=== PATIENT | female | born 1950 | race Caucasian/White ===

== ENCOUNTER 2018-02-12 02:42 | Inpatient (IN) | payer BC, MEDICARE ==
[2018-02-12] MEDS: Sodium Chloride 0.9% 1,000 ML IV SCH ×2 (03:07→10:21)
--- NOTE | 2018-02-12 03:10 | EDM.PDOC ---
ED HPI GENERAL MEDICAL PROBLEM - General Chief Complaint: Gastrointestinal Problem Stated Complaint: [facility] Time Seen by Provider: 02/12/18 02:44 Source of Information: Reports: Patient History Limitations: Reports: Other (Patient forgetful of some events) - History of Present Illness INITIAL COMMENTS - FREE TEXT/NARRATIVE: The patient states that she developed generalized abdominal pain, nausea, and emesis around 16:00 yesterday afternoon, 02/11/2018. She has not had any constipation or diarrhea. She has overactive bladder, but no new urinary symptoms. A recent fever. She is unable to describe the character of the abdominal pain, but states that it is constant. She states that she has had similar symptoms the past, but not for a long time. She denies easily eating any spoiled food. No recent antibiotics. No close contacts similarly ill. No recent travel. The patient is a resident of [facility]. EMS gave the patient 4 mg of Zofran ODT, which the patient states has improved her symptoms. The patient's PCP is Rohini Tompkins. abdominal Pain Score (Numeric/FACES): 5 - Related Data Allergies Allergy/AdvReac Type Severity Reaction Status Date / Time No Known Allergies Allergy Verified 02/12/18 02:59 Home Meds: Home Meds Alendronate [Fosamax] 70 mg PO WEEKLY 10/28/13 [History] Calcium 1 tab PO DAILY 10/28/13 [History] Chlortabs 4 mg PO BEDTIME 10/28/13 [History] ClonazePAM [KlonoPIN] 1 mg PO DAILY PRN 10/28/13 [History] Iron 1 tab PO DAILY 10/28/13 [History] Lisinopril 2.5 mg PO BEDTIME 10/28/13 [History] Metoprolol Succinate [Toprol XL] 25 mg PO DAILY 10/28/13 [History] Multivitamin [Multivitamins] 1 cap PO BID 10/28/13 [History] Pramipexole [Mirapex] 1 mg PO BEDTIME 10/28/13 [History] Sertraline [Zoloft] 100 mg PO DAILY 10/28/13 [History] carBAMazepine [Tegretol] 200 mg PO BID 10/28/13 [History] Aspirin 162 mg PO DAILY 12/05/14 [History] Cholecalciferol (Vitamin D3) [Vitamin D3] 1,000 unit PO DAILY 06/23/15 [History] Cranberry Extract [Cranberry] 2,000 mg PO DAILY 06/23/15 [History] Vitamin E 400 unit PO DAILY 06/23/15 [History] Levofloxacin [Levaquin] 1 tab PO Q24H #7 tablet 12/19/15 [Rx] Past Medical History HEENT History: Reports: Impaired Vision Other HEENT History: Wears glasses Genitourinary History: Reports: Renal Calculus, Other (See Below) (Overactive bladder) Neurological History: Reports: 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), Seizure Psychiatric History: Reports: Anxiety, Depression 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), Uterine - Past Surgical History Head Surgeries/Procedures: Reports: Craniotomy (excision of brain tumor Jul 1994 ) GI Surgical History: Reports: Cholecystectomy Female Surgical History: Reports: Hysterectomy Neurological Surgical History: Reports: Spinal Fusion (lumbar) Social & Family History - Tobacco Use Smoking Status *Q: Former Smoker Years of Tobacco use: 12 Packs/Tins Daily: 1 Month/Year Tobacco Last Used: Quit 1978 - Alcohol Use Alcohol Use History: No - Recreational Drug Use Recreational Drug Use: No - Living Situation & Occupation Living situation: Reports: , Assisted Living ([facility]) Occupation: Disabled ED ROS GENERAL - Review of Systems Review Of Systems: ROS reveals no pertinent complaints other than HPI. ED EXAM, GI/ABD - Physical Exam Exam: See Below Exam Limited By: No Limitations General Appearance: Alert, WD/WN, Mild Distress (appears uncomfortable) Eyes: Bilateral: Normal Appearance, EOMI Ears: Normal External Exam, Hearing Grossly Normal Nose: Normal Inspection, No Blood Throat/Mouth: Normal Inspection, Normal Lips, Normal Voice, No Airway Compromise Head: Atraumatic Neck: Normal Inspection, Full Range of Motion Respiratory/Chest: No Respiratory Distress, Lungs Clear, Normal Breath Sounds, No Accessory Muscle Use Cardiovascular: Normal Peripheral Pulses, Regular Rate, Rhythm, No Edema, No Gallop, No JVD, No Murmur, No Rub GI/Abdominal Exam: Soft, No Organomegaly, No Distention, No Abnormal Bruit, No Mass, Tender (Generalized, non-focal) (Female) Exam: Deferred Rectal (Female) Exam: Deferred Extremities: Normal Inspection, Normal Range of Motion, No Pedal Edema, Normal Capillary Refill Neurological: Alert, Oriented, Confused (mild), Other (Right facial droop and right-sided hemiparesis) Psychiatric: Normal Affect Skin Exam: Warm, Dry, Intact, Normal Color, No Rash Course - Vital Signs Last Recorded V/S: Last Vital Signs Temp 36.6 C 02/12/18 05:34 Pulse 77 02/12/18 05:34 Resp 16 02/12/18 05:34 BP 127/63 02/12/18 05:34 Pulse Ox 97 02/12/18 05:34 - Orders/Labs/Meds Orders: Active Orders 24 hr Category Date Time Status Patient Status [ADT] Routine ADT 02/12/18 06:15 Active Insert Urinary Catheter [OM.PC] Q24H Care 02/12/18 03:30 Ordered Urinary Catheter Assessment [RC] ASDIRECTED Care 02/12/18 03:19 Active Abdomen Pelvis w Cont [CT] Stat Exams 02/12/18 03:03 Taken Sodium Chloride 0.9% [Normal Saline] 1,000 ml Med 02/12/18 03:15 Active IV ASDIRECTED NG [Nasogastric Orogastric Tube Insertion] [OM.PC] Oth 02/12/18 05:14 Ordered Routine Medication Orders Sodium Chloride (Normal Saline) 1,000 mls @ 150 mls/hr IV ASDIRECTED [facility] Last Admin: 02/12/18 03:07 Dose: 150 mls/hr Labs: Laboratory Tests 02/12/18 02/12/18 02/12/18 Range/Units 02:55 02:55 03:13 WBC 15.17 H (3.98-10.04) K/mm3 RBC 4.25 (3.98-5.22) M/mm3 Hgb 13.2 (11.2-15.7) gm/L Hct 39.5 (34.1-44.9) % MCV 92.9 (79.4-94.8) fl MCH 31.1 (25.6-32.2) pg MCHC 33.4 (32.2-35.5) g/dl RDW Std Deviation 41.6 (36.4-46.3) fL Plt Count 197 (182-369) K/mm3 MPV 11.6 (9.4-12.3) fl Neutrophils % (Manual) 79 H (40-60) % Band Neutrophils % 0 (0-10) % Lymphocytes % (Manual) 14 L (20-40) % Atypical Lymphs % 0 % Monocytes % (Manual) 7 (2-10) % Eosinophils % (Manual) 0 L (0.7-5.8) % Basophils % (Manual) 0 L (0.1-1.2) Platelet Estimate Adequate Plt Morphology Comment Normal RBC Morph Comment Normal Sodium 142 (136-145) mEq/L Potassium 3.6 (3.5-5.1) mEq/L Chloride 104 (98-107) mEq/L Carbon Dioxide 27 (21-32) mEq/L Anion Gap 14.6 (5-15) BUN 32 H (7-18) mg/dL Creatinine 0.8 (0.55-1.02) mg/dL Est Cr Clr Drug Dosing 53.01 mL/min Estimated GFR (MDRD) > 60 (>60) mL/min BUN/Creatinine Ratio 40.0 H (14-18) Glucose 163 H (80-115) mg/dL Calcium 9.6 (8.5-10.1) mg/dL Total Bilirubin 0.3 (0.2-1.0) mg/dL AST 15 (15-37) U/L ALT 17 (14-59) U/L Alkaline Phosphatase 93 (46-116) U/L Total Protein 6.9 (6.4-8.2) g/dl Albumin 4.1 (3.4-5.0) g/dl Globulin 2.8 gm/dL Albumin/Globulin Ratio 1.5 (1-2) Lipase 177 (73-393) U/L Urine Color Yellow (Yellow) Urine Appearance Slt cloudy H (Clear) Urine pH 7.0 (5.0-8.0) Ur Specific [place] 1.020 (1.005-1.030) Urine Protein Negative (Negative) Urine Glucose (UA) Negative (Negative) Urine Ketones 1+ H (Negative) Urine Occult Blood Negative (Negative) Urine Nitrite Negative (Negative) Urine Bilirubin Negative (Negative) Urine Urobilinogen 0.2 (0.2-1.0) Ur Leukocyte Esterase Negative (Negative) Urine RBC Not seen (0-5) /hpf Urine WBC 0-5 (0-5) /hpf Urine WBC Clumps Rare (NOT SEEN) /hpf Ur Epithelial Cells 0-5 (0-5) /hpf Urine Bacteria Many H (FEW) /hpf Hyaline Casts 0-5 (0-5) /lpf Urine Mucus Moderate H (FEW) /hpf Meds: Medications Generic Name Dose Route Start Last Admin Trade Name Vanessa PRN Reason Stop Dose Admin Sodium Chloride 1,000 mls @ 150 mls/hr 02/12/18 03:15 02/12/18 03:07 Normal Saline IV 150 mls/hr ASDIRECTED IZZY Administration Discontinued Medications Generic Name Dose Route Start Last Admin Trade Name Vanessa PRN Reason Stop Dose Admin Hydromorphone HCl 0.5 mg 02/12/18 06:08 02/12/18 06:13 Dilaudid IVPUSH 02/12/18 06:09 0.5 mg ONETIME ONE Administration Iopamidol 125 ml 02/12/18 04:29 02/12/18 04:59 Isovue-300 (61%) IVPUSH 02/12/18 04:30 125 ml ONETIME ONE Administration Lidocaine HCl 10 ml 02/12/18 05:15 02/12/18 05:32 Xylocaine 2% Jelly MUCMEM 02/12/18 05:16 Not Given ONETIME ONE Lidocaine HCl 15 ml 02/12/18 05:31 02/12/18 05:32 Xylocaine 2% Viscous PO 02/12/18 05:32 15 ml ONETIME ONE Administration Ondansetron HCl 4 mg 02/12/18 05:32 02/12/18 05:41 Zofran IVPUSH 02/12/18 05:33 4 mg ONETIME ONE Administration - Re-Assessments/Exams Free Text/Narrative Re-Assessment/Exam: 02/12/18 03:13 I have ordered a workup to evaluate the patient's abdominal pain with nausea and emesis. I offered pain medication, however, the patient declined, as it may worsen her nausea. 02/12/18 05:09 CT of the abdomen and pelvis with oral and IV contrast is read by [facility] as: 1. Incomplete distal small bowel obstruction secondary to a severe enteritis involving a portion of the ileum as discussed above. Crohn's disease should be considered in this patient. 2. No evidence for abscess 3. An NG tube would help this patient. 02/12/18 05:17 Test results discussed with the patient. I recommended that a NG tube be placed , and the patient has agreed. I ordered viscous lidocaine. Case then discussed with Dr. Subramanian at 05:15. He accepts the patient for admission to Med/Surg. Departure - Departure Time of Disposition: 05:18 Disposition: Admitted As Inpatient 65 Condition: Fair Clinical Impression: Partial small bowel obstruction - Discharge Information *PRESCRIPTION DRUG MONITORING PROGRAM REVIEWED*: Not Applicable *COPY OF PRESCRIPTION DRUG MONITORING REPORT IN PATIENT [facility]: Not Applicable Referrals: PCP,None [Primary Care Provider] - Forms: ED Department Discharge - My Orders Last 24 Hours: My Active Orders 02/12/18 03:03 Abdomen Pelvis w Cont [CT] Stat 02/12/18 03:15 Sodium Chloride 0.9% [Normal Saline] 1,000 ml IV ASDIRECTED 02/12/18 03:19 Urinary Catheter Assessment [RC] ASDIRECTED 02/12/18 03:30 Insert Urinary Catheter [OM.PC] Q24H 02/12/18 05:14 NG [Nasogastric Orogastric Tube Insertion] [OM.PC] Routine 02/12/18 06:15 Patient Status [ADT] Routine - Assessment/Plan Last 24 Hours: My Active Orders 02/12/18 03:03 Abdomen Pelvis w Cont [CT] Stat 02/12/18 03:15 Sodium Chloride 0.9% [Normal Saline] 1,000 ml IV ASDIRECTED 02/12/18 03:19 Urinary Catheter Assessment [RC] ASDIRECTED 02/12/18 03:30 Insert Urinary Catheter [OM.PC] Q24H 02/12/18 05:14 NG [Nasogastric Orogastric Tube Insertion] [OM.PC] Routine 02/12/18 06:15 Patient Status [ADT] Routine
[2018-02-12] MEDS ORDERED: Iopamidol 612 MG/ML 150 ML Bottle IVPUSH ONE (04:29)
[2018-02-12] MEDS ORDERED: Lidocaine 2% Jelly 10 ML Urojet MUCMEM ONE (05:15)
[2018-02-12] MEDS ORDERED: Lidocaine 2% Viscous Solution 15 ML Cup PO ONE (05:31)
[2018-02-12] MEDS ORDERED: Ondansetron 4 MG/2 ML SDV IVPUSH ONE (05:32)
[2018-02-12] MEDS ORDERED: HYDROmorphone 0.5 MG/0.5 ML SYRINGE IVPUSH ONE (06:08)
--- NOTE | 2018-02-12 06:40 | PCM.HP ---
H&P History of Present Illness - General Date of Service: 02/12/18 Admit Problem/Dx: Admission Diagnosis/Problem Admission Diagnosis/Problem Small bowel obstruction Source of Information: Patient, EMS, Old Records, Provider, RN History Limitations: Reports: No Limitations - History of Present Illness Initial Comments - Free Text/Narative: Basia Toribio is a 67 yo female who presents to our ED early this AM via Ambulance with abdominal pain, nausea, and emesis which began Saturday, 2017 at around 1600. She is not a very good historian and is unable to describe the character of her abdominal pain but states it is constant. She reports she has had similar symptoms in the past but has been quite some time since. Denies eating any small or questionable food. No recent antibiotics. No sick contacts. No recent travel. She reports a prior overactive bladder but no new urinary symptoms. Denies constipation or diarrhea. She does report a recent fever. She is a resident [facility] and was given 4 mg Zofran via EMS, which improved her nausea. In the ED temp was 36.6C. Pulse 77. Respirations 16. Blood pressure 127/63. Pulse ox 97%. Labs are obtained: WBC is elevated at 15.17. Hemoglobin normal at 13.2. Hematocrit 39.5. She was normocytic. Platelets are on the low end of good at 197,000. Neutrophils are elevated at 79%. There is no bandemia. Sodium is good at 142. Potassium 3.6. Chloride 104. Carbon dioxide 27. Anion gap is on the high end of normal at 14.6. BUN is elevated at 32. Creatinine 0.8. EGFR greater than 60. Glucose is 163. Calcium 9.6. Bilirubin 0.3. AST is 15, ALT 17, alkaline phosphatase 93. Protein is 6.9. Albumin 4.1. Lipase is good at 177. UA is obtained which is slightly cloudy. One plus ketones and 0-5 WBCs are noted. There is also many bacteria and moderate mucus. She started on normal saline at 150 mils an hour. She is given Dilaudid 0.5 mg for pain and 4 mg IV push of Zofran. CT abdomen and pelvis with oral and IV contrast is obtained and interpreted by [facility] as 1. Incomplete distal small bowel obstruction secondary to severe enteritis involving a portion of the ileum as discussed above. Crohn's disease should be considered in this patient. 2. No evidence for abscess. 3. NG tube would help this patient. NG tube was subsequently placed. 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 She is a former smoker who quit in 1978. She wishes to be DNR/DNI. PCP is Antonio Tompkins PA-C. abdominal Pain Score (Numeric/FACES): 5 - Related Data Allergies/Adverse Reactions: Allergies Allergy/AdvReac Type Severity Reaction Status Date / Time No Known Allergies Allergy Verified 02/12/18 02:59 Home Medications: Home Meds Alendronate [Fosamax] 70 mg PO WEEKLY 10/28/13 [History] Calcium 1 tab PO DAILY 10/28/13 [History] Iron 325 mg PO DAILY 10/28/13 [History] Lisinopril 2.5 mg PO BEDTIME 10/28/13 [History] Metoprolol Succinate [Toprol XL] 25 mg PO DAILY 10/28/13 [History] Multivitamin [Multivitamins] 1 cap PO DAILY 10/28/13 [History] Pramipexole [Mirapex] 1 mg PO BEDTIME 10/28/13 [History] Sertraline [Zoloft] 100 mg PO DAILY 10/28/13 [History] carBAMazepine [Tegretol] 200 mg PO BID 10/28/13 [History] Aspirin 81 mg PO DAILY 12/05/14 [History] Cholecalciferol (Vitamin D3) [Vitamin D3] 1,000 unit PO DAILY 06/23/15 [History] Cranberry Extract [Cranberry] 2 tab PO DAILY 06/23/15 [History] Chlorpheniramine Maleate [Chlor Hist] 4 mg PO Q4HR PRN 02/12/18 [History] Cyanocobalamin (Vitamin B-12) [Vitamin B-12] 1,000 mcg PO DAILY 02/12/18 [ History] Meclizine [Antivert] 12.5 mg PO TID PRN 02/12/18 [History] Past Medical History HEENT History: Reports: Impaired Vision Other HEENT History: Wears glasses Genitourinary History: Reports: Renal Calculus, Other (See Below) (Overactive bladder) Other Genitourinary History: c/o overactive bladder Musculoskeletal History: Reports: Other (See Below) Other Musculoskeletal History: right sided weakness secondary to stroke Neurological History: Reports: 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), Seizure Other Neuro History: right sided weakness Psychiatric History: Reports: Anxiety, Depression Endocrine/Metabolic History: Reports: Osteoporosis 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), Uterine Other Oncologic History: uterian cancer - Past Surgical History Head Surgeries/Procedures: Reports: Craniotomy (excision of brain tumor Jul 1994 ) GI Surgical History: Reports: Cholecystectomy Female Surgical History: Reports: Hysterectomy Neurological Surgical History: Reports: Spinal Fusion (lumbar) Social & Family History - Family History Family Medical History: Noncontributory - Tobacco Use Smoking Status *Q: Former Smoker Years of Tobacco use: 12 Packs/Tins Daily: 1 Used Tobacco, but Quit: No Month/Year Tobacco Last Used: Quit 1978 - Caffeine Use Caffeine Use: Reports: Coffee - Recreational Drug Use Recreational Drug Use: No - Living Situation & Occupation Living situation: Reports: , Assisted Living ([facility]) Occupation: Disabled H&P Review of Systems - Review of Systems: Review Of Systems: See Below General: Reports: Fever, Weakness, Fatigue, Decreased Appetite. Denies: Chills HEENT: Reports: Sore Throat (from NG tube ) Pulmonary: Reports: No Symptoms. Denies: Shortness of Breath, Wheezing, Pleuritic Chest Pain, Cough, Sputum Cardiovascular: Reports: No Symptoms. Denies: Chest Pain, Palpitations, Edema, Lightheadedness Gastrointestinal: Reports: Abdominal Pain (generalized ), Decreased Appetite, Nausea, Vomiting. Denies: Constipation, Diarrhea, Difficulty Swallowing, Flatus Genitourinary: Reports: Other (chronic overactive bladder ). Denies: Dysuria, Burning, Pain Musculoskeletal: Reports: No Symptoms Skin: Reports: No Symptoms Psychiatric: Reports: No Symptoms Neurological: Reports: Pre-Existing Deficit (right sided hemiparesis and facial droop - chronic s/p CVA ), Difficulty Walking (chronic ), Gait Disturbance ( chronic s/p CVA ). Denies: Confusion, Weakness Hematologic/Lymphatic: Reports: No Symptoms Immunologic: Reports: No Symptoms Exam - Exam Exam: See Below - Vital Signs Vital Signs: Last Vital Signs Temp 97.8 F 02/12/18 05:34 Pulse 77 02/12/18 05:34 Resp 16 02/12/18 05:34 BP 127/63 02/12/18 05:34 Pulse Ox 97 02/12/18 05:34 Weight: 110 lb - Exam Quality Assessment: DVT Prophylaxis General: Alert, Oriented, Cooperative, Mild Distress (abdominal pain - mild ) HEENT: Conjunctiva Clear, EACs Clear, EOMI, Hearing Intact, Mucosa Moist & [place] , Nares Patent, Normal Nasal Septum, Posterior Pharynx Clear, PERRLA Neck: Supple, Trachea Midline Lungs: Clear to Auscultation, Normal Respiratory Effort Cardiovascular: Regular Rate, Regular Rhythm GI/Abdominal Exam: Soft, No Distention, Tender (mild generalized ), Abnormal Bowel Sounds (Female) Exam: Deferred Rectal (Female) Exam: Deferred Back Exam: Normal Inspection, Full Range of Motion Extremities: Normal Inspection, Normal Range of Motion, Non-Tender, No Pedal Edema, Normal Capillary Refill, Other (right sided weakness - chronic s/p CVA) Peripheral Pulses: 2+: Radial (L), Radial (R), Dorsalis Pedis (L), Dorsalis Pedis (R) Skin: Warm, Dry, Intact Neurological: Cranial Nerves Intact (grossly ), Other (right sided hemiparesis and facial droop - chronic ) Psychiatric: Alert, Normal Affect, Normal Mood - Patient Data Lab Results Last 24 hrs: Laboratory Results - last 24 hr 02/12/18 02/12/18 02/12/18 Range/Units 02:55 02:55 03:13 WBC 15.17 H (3.98-10.04) K/mm3 RBC 4.25 (3.98-5.22) M/mm3 Hgb 13.2 (11.2-15.7) gm/L Hct 39.5 (34.1-44.9) % MCV 92.9 (79.4-94.8) fl MCH 31.1 (25.6-32.2) pg MCHC 33.4 (32.2-35.5) g/dl RDW Std Deviation 41.6 (36.4-46.3) fL Plt Count 197 (182-369) K/mm3 MPV 11.6 (9.4-12.3) fl Neutrophils % (Manual) 79 H (40-60) % Band Neutrophils % 0 (0-10) % Lymphocytes % (Manual) 14 L (20-40) % Atypical Lymphs % 0 % Monocytes % (Manual) 7 (2-10) % Eosinophils % (Manual) 0 L (0.7-5.8) % Basophils % (Manual) 0 L (0.1-1.2) Platelet Estimate Adequate Plt Morphology Comment Normal RBC Morph Comment Normal Sodium 142 (136-145) mEq/L Potassium 3.6 (3.5-5.1) mEq/L Chloride 104 (98-107) mEq/L Carbon Dioxide 27 (21-32) mEq/L Anion Gap 14.6 (5-15) BUN 32 H (7-18) mg/dL Creatinine 0.8 (0.55-1.02) mg/dL Est Cr Clr Drug Dosing 53.01 mL/min Estimated GFR (MDRD) > 60 (>60) mL/min BUN/Creatinine Ratio 40.0 H (14-18) Glucose 163 H (80-115) mg/dL Calcium 9.6 (8.5-10.1) mg/dL Total Bilirubin 0.3 (0.2-1.0) mg/dL AST 15 (15-37) U/L ALT 17 (14-59) U/L Alkaline Phosphatase 93 (46-116) U/L Total Protein 6.9 (6.4-8.2) g/dl Albumin 4.1 (3.4-5.0) g/dl Globulin 2.8 gm/dL Albumin/Globulin Ratio 1.5 (1-2) Lipase 177 (73-393) U/L Urine Color Yellow (Yellow) Urine Appearance Slt cloudy H (Clear) Urine pH 7.0 (5.0-8.0) Ur Specific [place] 1.020 (1.005-1.030) Urine Protein Negative (Negative) Urine Glucose (UA) Negative (Negative) Urine Ketones 1+ H (Negative) Urine Occult Blood Negative (Negative) Urine Nitrite Negative (Negative) Urine Bilirubin Negative (Negative) Urine Urobilinogen 0.2 (0.2-1.0) Ur Leukocyte Esterase Negative (Negative) Urine RBC Not seen (0-5) /hpf Urine WBC 0-5 (0-5) /hpf Urine WBC Clumps Rare (NOT SEEN) /hpf Ur Epithelial Cells 0-5 (0-5) /hpf Urine Bacteria Many H (FEW) /hpf Hyaline Casts 0-5 (0-5) /lpf Urine Mucus Moderate H (FEW) /hpf Result Diagrams: 02/12/18 02:55 02/12/18 02:55 - Problem List (1) Partial small bowel obstruction SNOMED Code(s): 568296489 ICD Code: K56.600 - PARTIAL INTESTINAL OBSTRUCTION, UNSPECIFIED TO CAUSE Status: Acute Priority: High Current Visit: Yes (2) Enteritis SNOMED Code(s): 75593156 ICD Code: K52.9 - NONINFECTIVE GASTROENTERITIS AND COLITIS, UNSPECIFIED Status: Acute Priority: High Current Visit: Yes (3) History of CVA with residual deficit SNOMED Code(s): 742153992 ICD Code: I69.30 - UNSPECIFIED SEQUELAE OF CEREBRAL INFARCTION Status: Chronic Priority: Medium Current Visit: Yes (4) History of brain cancer SNOMED Code(s): 440816075, 789364802 ICD Code: Z85.841 - PERSONAL HISTORY OF MALIGNANT NEOPLASM OF BRAIN Status : Chronic Priority: Medium Current Visit: No (5) History of uterine cancer SNOMED Code(s): 674637701 ICD Code: Z85.42 - PERSONAL HISTORY OF MALIGNANT NEOPLASM OF OTH PRT UTERUS Status: Chronic Priority: Low Current Visit: No (6) Anxiety SNOMED Code(s): 45082491 ICD Code: F41.9 - ANXIETY DISORDER, UNSPECIFIED Status: Chronic Priority : Medium Current Visit: No (7) History of seizures SNOMED Code(s): 865360340 ICD Code: Z87.898 - PERSONAL HISTORY OF OTHER SPECIFIED CONDITIONS Status: Chronic Priority: Medium Current Visit: No Problem List Initiated/Reviewed/Updated: Yes Orders Last 24hrs: Active Orders 24 hr Category Date Time Status Patient Status [ADT] Routine ADT 02/12/18 06:15 Active Insert Urinary Catheter [OM.PC] Q24H Care 02/12/18 03:30 Ordered Urinary Catheter Assessment [RC] ASDIRECTED Care 02/12/18 03:19 Active Abdomen Pelvis w Cont [CT] Stat Exams 02/12/18 03:03 Taken Sodium Chloride 0.9% [Normal Saline] 1,000 ml Med 02/12/18 03:15 Active IV ASDIRECTED NG [Nasogastric Orogastric Tube Insertion] [OM.PC] Oth 02/12/18 05:14 Ordered Routine Medication Orders Sodium Chloride (Normal Saline) 1,000 mls @ 150 mls/hr IV ASDIRECTED [facility] Last Admin: 02/12/18 03:07 Dose: 150 mls/hr Assessment/Plan Comment:: I/P: Acute: Partial small bowel obstruction -Reports symptoms started on afternoon of 02/11/18 -Generalized abdominal pain, nausea, emesis, fever -Reports similar symptoms in the past which spontaneously resolved -Reports last BM on 02/11/18 with no recent flatus -CT scan 02/12/18 1. Incomplete distal small bowel obstruction secondary to severe enteritis involving a portion of the ileum as described above. Crohn's disease should be considered in this patient. 2. No evidence for abscess 3. An NG tube would help this patient. -WBC 15.17 -CRP 0.3 -NG tube placed in ED with good return - continue with intermittent suction -Antiemetics as ordered -NPO -Clamp NG tube for home meds -Ambulate QID -Pain medications as ordered -Hurricane spray for throat irritation from NG tube -D5NS and Q6hr glucose checks while NPO -PT/OT -Levaquin/zosyn for enteritis -Unlikely to develop Crohn's at 67 - explore other options for inflammation -Will hold off surgical consult for now Chronic: Overactive bladder 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
[2018-02-12] MEDS ORDERED: Ondansetron 4 MG/2 ML SDV IV PRN (06:57)
[2018-02-12] MEDS ORDERED: Acetaminophen 650 MG Supp RECTAL PRN (06:57)
[2018-02-12] MEDS ORDERED: Metoprolol Tartrate 5 MG/5 ML SDV IVPUSH PRN (07:02)
[2018-02-12] MEDS ORDERED: hydrALAZINE 20 MG/ML SDV IVPUSH PRN (07:02)
--- NOTE | 2018-02-12 07:29 | CT ---
CT abdomen and pelvis Technique: Multiple axial sections were obtained from above the dome of the diaphragm inferiorly through the pubic symphysis. Intravenous contrast was utilized. Oral contrast given which remains within the stomach. Comparison: Prior CT abdomen and pelvis exam of 12/20/15. Findings: Diffuse small bowel wall dilatation is seen which is filled with fluid compatble with small bowel obstruction. Focal area of bowel wall thickening and narrowing is seen within the terminal ileum which is felt to be the etiology for the small bowel findings. Visualized lung bases show nothing acute. Liver shows no focal parenchymal abnormality. Surgical clips are seen from prior cholecystectomy. Spleen appears within normal limits. Adrenal glands show no nodule. Kidneys show symmetric contrast enhancement without hydronephrosis or mass. Pancreas is within normal limits. Aorta shows no aneurysmal dilatation. No retroperitoneal adenopathy or mesenteric abnormalities are seen. Small amount of free fluid seen within the pelvis which is likely reactive from the small bowel process. No pelvic mass or adenopathy is seen. Delayed images show contrast excretion into both ureters with contrast seen within the bladder. Bone window settings were reviewed which show spondylolisthesis at L4-L5 and severe disc space narrowing at L4-L5. Transpedicle screws are noted within L5-S1. Appendix is not definitely visualized. Impression: 1. Distal small bowel obstruction caused by an area of distal small bowel wall thickening and narrowing at the terminal ileum. Crohn's disease is a strong possibility. 2. Other incidental findings as noted above. Diagnostic code #5 Agree with preliminary report issued by [employer] ([employer] preliminary report dictated on 02/12/18, 6:04 AM Central Time)
[2018-02-12] MEDS ORDERED: Benzocaine 20% Oral Spray 59.2 ML Canister MUCMEM PRN (09:57)
[2018-02-12] MEDS: metroNIDAZOLE/Normal Saline 500 MG in Premix Bag 1 BAG IV SCH ×2 (10:06→16:09)
[2018-02-12] MEDS: Enoxaparin 40 MG/0.4 ML Syringe SUBCUT SCH (10:09)
[2018-02-12] MEDS: Pantoprazole 40 MG Vial IV SCH ×2 (10:09→19:59)
[2018-02-12] MEDS: HYDROmorphone 0.5 MG/0.5 ML Syringe IVPUSH PRN ×2 (10:20→13:50)
[2018-02-12] MEDS: Levofloxacin/Dextrose 5%-Water 500 MG in Premix Bag 1 BAG IV SCH (11:13)
[2018-02-12] MEDS: Metoclopramide 10 MG/2 ML SDV IVPUSH SCH ×3 (11:32→22:28)
[2018-02-12] MEDS ORDERED: carBAMazepine 200 MG Tab PO ONE (12:20)
[2018-02-12] MEDS ORDERED: Pramipexole 0.25 MG Tab PO ONE (12:20)
[2018-02-12] MEDS ORDERED: LORazepam 2 MG/ML SDV IVPUSH PRN ×2 (13:09→21:59)
[2018-02-12] MEDS ORDERED: Pramipexole 0.5 MG Tab PO SCH (16:00)
[2018-02-12] MEDS: Dextrose 5%-0.9% NaCl 1,000 ML IV SCH (17:08)
[2018-02-12] MEDS: carBAMazepine 200 MG Tab PO SCH (19:59)
[2018-02-13] MEDS: metroNIDAZOLE/Normal Saline 500 MG in Premix Bag 1 BAG IV SCH ×3 (00:11→17:41)
[2018-02-13] MEDS: Metoclopramide 10 MG/2 ML SDV IVPUSH SCH ×4 (05:52→23:06)
--- NOTE | 2018-02-13 07:03 | PCM.PN ---
- General Info Date of Service: 02/13/18 Admission Dx/Problem (Free Text): Admission Diagnosis/Problem Admission Diagnosis/Problem Small bowel obstruction Subjective Update: In to see Basia. She reports her pain has greatly improved today. She has been walking with therapies. She needs to ambulate more and was instructed to walk QID. She reports she has difficulty walking but agrees to ambulate more. We discussed plan of care and continued need for the NG tube. She has been getting scheduled reglan. She is not nauseated anymore. Will keep NG tube in place until return clears up and slows down. She has not had a BM or flatus. She is on D5NS. MRSA screen was negative. CRP is elevated today however WBC is slightly lower. Will continue current treatment plan. Functional Status: Reports: Pain Controlled, Ambulating, Urinating. Denies: Tolerating Diet (NPO), New Symptoms - Review of Systems General: Reports: No Symptoms. Denies: Fever, Weakness, Fatigue, Malaise HEENT: Reports: No Symptoms. Denies: Sore Throat Pulmonary: Reports: No Symptoms. Denies: Shortness of Breath, Cough, Sputum, Wheezing Cardiovascular: Reports: No Symptoms. Denies: Chest Pain, Palpitations, Edema Gastrointestinal: Reports: Abdominal Pain (improved ), Decreased Appetite. Denies: Diarrhea, Flatus, Nausea, Vomiting Genitourinary: Reports: No Symptoms Musculoskeletal: Reports: No Symptoms Skin: Reports: No Symptoms Neurological: Reports: No Symptoms, Pre-Existing Deficit, Difficulty Walking (s/ p CVA ), Gait Disturbance (s/p CVA ), Other (Right sided facial droop and hemiplasia ). Denies: Confusion, Dizziness, Numbness, Tingling Psychiatric: Reports: No Symptoms - Patient Data Vitals - Most Recent: Last Vital Signs Temp 98.2 F 02/13/18 04:00 Pulse 77 02/13/18 04:00 Resp 12 02/13/18 04:00 BP 107/82 02/13/18 04:00 Pulse Ox 92 L 02/13/18 04:00 Weight - Most Recent: 116 lb 12.8 oz I&O - Last 24 Hours: Intake & Output 02/12/18 02/13/18 02/13/18 22:59 06:59 14:59 Intake Total 1317 775 Output Total 450 525 Balance 867 250 Lab Results Last 24 Hours: Laboratory Results - last 24 hr 02/12/18 02/12/18 02/12/18 Range/Units 02:55 06:40 17:54 POC Glucose 139 H (80-115) mg/dL C-Reactive Protein 0.3 (<1.0) mg/dL MRSA (PCR) Negative 02/13/18 02/13/18 Range/Units 00:12 05:50 POC Glucose 127 H 118 H (80-115) mg/dL C-Reactive Protein (<1.0) mg/dL MRSA (PCR) Med Orders - Current: Current Medications Acetaminophen (Tylenol) 650 mg RECTAL Q4H PRN PRN Reason: Pain (mild 1-3) Benzocaine (Hurricaine 20% [place]) 0 ml MUCMEM Q4H PRN PRN Reason: Throat pain from NG tube Last Admin: 02/12/18 10:19 Dose: 1 spray Carbamazepine (Tegretol Tab) 200 mg PO BID [facility] Last Admin: 02/12/18 19:59 Dose: 200 mg Enoxaparin Sodium (Lovenox) 40 mg SUBCUT DAILY [facility] Last Admin: 02/12/18 10:09 Dose: 40 mg Hydralazine HCl (Apresoline) 10 mg IVPUSH Q6H PRN PRN Reason: Hypertension Hydromorphone HCl (Dilaudid) 0.5 mg IVPUSH Q2H PRN PRN Reason: Pain (severe 7-10) Last Admin: 02/12/18 13:50 Dose: 0.5 mg Levofloxacin/Dextrose 500 mg/ (Premix) 100 mls @ 100 mls/hr IV Q24H [facility] Last Admin: 02/12/18 11:13 Dose: 100 mls/hr Metronidazole 500 mg/ Premix 100 mls @ 100 mls/hr IV Q8H [facility] Last Admin: 02/13/18 00:11 Dose: 100 mls/hr Dextrose/Sodium Chloride (Dextrose 5%-Normal Saline) 1,000 mls @ 50 mls/hr IV ASDIRECTED [facility] Last Admin: 02/12/18 17:08 Dose: 50 mls/hr Lorazepam (Ativan) 2 mg IVPUSH Q4H PRN PRN Reason: Seizures Lorazepam (Ativan) 1 mg IVPUSH Q4H PRN; Protocol PRN Reason: Anxiety Last Admin: 02/12/18 22:29 Dose: 1 mg Magnesium Sulfate (Pharmacy To Dose - Magnesium Replacement) 0 dose .XX ASDIRECTED PRN PRN Reason: RX TO DOSE MAG Metoclopramide HCl (Reglan) 5 mg IVPUSH Q6H [facility] Last Admin: 02/13/18 05:52 Dose: 5 mg Metoprolol Succinate (Toprol Xl) 25 mg PO DAILY [facility] Metoprolol Tartrate (Lopressor) 5 mg IVPUSH Q4H PRN PRN Reason: Tachycardia Pantoprazole Sodium (Protonix Iv) 40 mg IV Q12HR [facility] Last Admin: 02/12/18 19:59 Dose: 40 mg Potassium Chloride (Pharmacy To Dose - Potassium Replacement) 0 dose .XX ASDIRECTED PRN PRN Reason: RX TO DOSE K Pramipexole Dihydrochloride (Mirapex) 1 mg PO Q24H [facility] Last Admin: 02/12/18 16:00 Dose: Not Given Sertraline HCl (Zoloft) 100 mg PO DAILY [facility] Discontinued Medications Carbamazepine (Tegretol Tab) 200 mg PO ONETIME ONE Stop: 02/12/18 12:21 Last Admin: 02/12/18 12:25 Dose: 200 mg Hydromorphone HCl (Dilaudid) 0.5 mg IVPUSH ONETIME ONE Stop: 02/12/18 06:09 Last Admin: 02/12/18 06:13 Dose: 0.5 mg Sodium Chloride (Normal Saline) 1,000 mls @ 150 mls/hr IV ASDIRECTED [facility] Last Admin: 02/12/18 10:21 Dose: 150 mls/hr Iopamidol (Isovue-300 (61%)) 125 ml IVPUSH ONETIME ONE Stop: 02/12/18 04:30 Last Admin: 02/12/18 04:59 Dose: 125 ml Lidocaine HCl (Xylocaine 2% Jelly) 10 ml MUCMEM ONETIME ONE Stop: 02/12/18 05:16 Last Admin: 02/12/18 05:32 Dose: Not Given Lidocaine HCl (Xylocaine 2% Viscous) 15 ml PO ONETIME ONE Stop: 02/12/18 05:32 Last Admin: 02/12/18 05:32 Dose: 15 ml Ondansetron HCl (Zofran) 4 mg IVPUSH ONETIME ONE Stop: 02/12/18 05:33 Last Admin: 02/12/18 05:41 Dose: 4 mg Ondansetron HCl (Zofran) 4 mg IV Q6H PRN PRN Reason: Nausea/Vomiting Last Admin: 02/12/18 10:05 Dose: 4 mg Pramipexole Dihydrochloride (Mirapex) 1 mg PO ONETIME ONE Stop: 02/12/18 12:21 Last Admin: 02/12/18 12:25 Dose: 1 mg - Exam Quality Assessment: DVT Prophylaxis General: Alert, Oriented, Cooperative, No Acute Distress HEENT: Pupils Equal, Pupils Reactive, EOMI, Mucous Membr. Moist/[place] Neck: Supple, Trachea Midline, No JVD Lungs: Clear to Auscultation, Normal Respiratory Effort Cardiovascular: Regular Rate, Regular Rhythm GI/Abdominal Exam: Soft, No Distention, Tender (LLQ>LUQ>epigastric), Abnormal Bowel Sounds (hyperactive ) (Female) Exam: Deferred Back Exam: Normal Inspection, Full Range of Motion Extremities: Normal Inspection, Non-Tender, No Pedal Edema, Normal Capillary Refill, Limited Range of Motion (right sided hemiplasia ) Peripheral Pulses: 2+: Radial (L), Radial (R), Dorsalis Pedis (L), Dorsalis Pedis (R) Skin: Warm, Dry, Intact Neurological: No New Focal Deficit Psy/Mental Status: Alert, Normal Affect, Normal Mood - Problem List & Annotations (1) Partial small bowel obstruction SNOMED Code(s): 873687723 Code(s): K56.600 - PARTIAL INTESTINAL OBSTRUCTION, UNSPECIFIED TO CAUSE Status: Acute Priority: High Current Visit: Yes (2) Enteritis SNOMED Code(s): 54561021 Code(s): K52.9 - NONINFECTIVE GASTROENTERITIS AND COLITIS, UNSPECIFIED Status: Acute Priority: High Current Visit: Yes (3) History of CVA with residual deficit SNOMED Code(s): 351515915 Code(s): I69.30 - UNSPECIFIED SEQUELAE OF CEREBRAL INFARCTION Status: Chronic Priority: Medium Current Visit: Yes (4) History of brain cancer SNOMED Code(s): 155073734, 688422075 Code(s): Z85.841 - PERSONAL HISTORY OF MALIGNANT NEOPLASM OF BRAIN Status: Chronic Priority: Medium Current Visit: No (5) History of uterine cancer SNOMED Code(s): 503735090 Code(s): Z85.42 - PERSONAL HISTORY OF MALIGNANT NEOPLASM OF OTH PRT UTERUS Status: Chronic Priority: Low Current Visit: No (6) Anxiety SNOMED Code(s): 75004307 Code(s): F41.9 - ANXIETY DISORDER, UNSPECIFIED Status: Chronic Priority: Medium Current Visit: No (7) History of seizures SNOMED Code(s): 354623273 Code(s): Z87.898 - PERSONAL HISTORY OF OTHER SPECIFIED CONDITIONS Status: Chronic Priority: Medium Current Visit: No (8) Hypokalemia SNOMED Code(s): 09957076 Code(s): E87.6 - HYPOKALEMIA Status: Acute Current Visit: Yes - Problem List Review Problem List Initiated/Reviewed/Updated: Yes - My Orders Last 24 Hours: My Active Orders 02/12/18 06:57 Height and Weight [RC] 04 Intake and Output [RC] Q4HR Oxygen Therapy [RC] PRN Pulse Oximetry [RC] PRN Up With Assistance [RC] BID VTE/DVT Education [RC] BID Vital Signs [RC] Q4HR Consult to Case Management/Electrotype Caster [CONS] Routine OT Evaluation and Treatment [CONS] Routine PT Evaluation and Treatment [CONS] Routine Acetaminophen [Tylenol] 650 mg RECTAL Q4H PRN HYDROmorphone [Dilaudid] 0.5 mg IVPUSH Q2H PRN 02/12/18 07:02 Metoprolol Tartrate [Lopressor] 5 mg IVPUSH Q4H PRN hydrALAZINE [Apresoline] 10 mg IVPUSH Q6H PRN 02/12/18 07:15 Magnesium Rep Pharmacy to Dose [Pharmacy to Dose - Magnesium Replacement] 0 dose .XX ASDIRECTED PRN Potassium Rep Pharmacy to Dose [Pharmacy to Dose - Potassium Replacement] 0 dose .XX ASDIRECTED PRN 02/12/18 09:00 Enoxaparin [Lovenox] 40 mg SUBCUT DAILY Pantoprazole [ProTONIX IV] 40 mg IV Q12HR 02/12/18 09:57 Benzocaine [Hurricaine 20% [place]] 0 ml MUCMEM Q4H PRN 02/12/18 10:47 Ambulate [RC] QID 02/12/18 11:00 Metoclopramide [Reglan] 5 mg IVPUSH Q6H 02/12/18 13:03 Blood Glucose Check, Bedside [RC] Q6HR 02/12/18 13:09 LORazepam [Ativan] 2 mg IVPUSH Q4H PRN 02/12/18 16:00 Pramipexole [Mirapex] 1 mg PO Q24H 02/12/18 18:00 Dextrose 5%-0.9% NaCl [Dextrose 5%-Normal Saline] 1,000 ml IV ASDIRECTED 02/12/18 21:00 carBAMazepine [TEGretol Tab] 200 mg PO BID 02/12/18 Breakfast Nothing per Oral Now Diet [DIET] 02/13/18 06:35 BASIC METABOLIC PANEL,BMP [CHEM] AM CBC WITH AUTO DIFF [HEME] AM CRP [C-REACTIVE PROTEIN] [CHEM] AM MAGNESIUM [CHEM] AM 02/13/18 09:00 Metoprolol Succinate [Toprol XL] 25 mg PO DAILY Sertraline [Zoloft] 100 mg PO DAILY 02/14/18 05:11 BASIC METABOLIC PANEL,BMP [CHEM] AM CBC WITH AUTO DIFF [HEME] AM CRP [C-REACTIVE PROTEIN] [CHEM] AM MAGNESIUM [CHEM] AM 02/15/18 05:11 BASIC METABOLIC PANEL,BMP [CHEM] AM CBC WITH AUTO DIFF [HEME] AM CRP [C-REACTIVE PROTEIN] [CHEM] AM MAGNESIUM [CHEM] AM 02/16/18 05:11 BASIC METABOLIC PANEL,BMP [CHEM] AM CBC WITH AUTO DIFF [HEME] AM CRP [C-REACTIVE PROTEIN] [CHEM] AM MAGNESIUM [CHEM] AM - Plan Plan:: I/P: Acute: Partial small bowel obstruction -Reports symptoms started on afternoon of 02/11/18 -Generalized abdominal pain, nausea, emesis, fever -Reports similar symptoms in the past which spontaneously resolved -Reports last BM on 02/11/18 with no recent flatus -CT scan 02/12/18 1. Incomplete distal small bowel obstruction secondary to severe enteritis involving a portion of the ileum as described above. Crohn's disease should be considered in this patient. 2. No evidence for abscess 3. An NG tube would help this patient. 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
[2018-02-13] MEDS ORDERED: LORazepam 0.5 MG Tab PO PRN (07:36)
[2018-02-13] MEDS: carBAMazepine 200 MG Tab PO SCH ×2 (08:26→20:42)
[2018-02-13] MEDS: Metoprolol Succinate 25 MG Tab.ER PO SCH (08:28)
[2018-02-13] MEDS: Sertraline 50 MG Tab PO SCH (08:32)
[2018-02-13] MEDS: Pantoprazole 40 MG Vial IV SCH ×2 (08:33→20:41)
[2018-02-13] MEDS: Enoxaparin 40 MG/0.4 ML Syringe SUBCUT SCH (08:33)
[2018-02-13] MEDS: Potassium Chloride 20 MEQ Tab.ER PO SCH ×2 (08:59→20:42)
[2018-02-13] MEDS: Acetaminophen 325 MG Tab PO PRN ×2 (09:00→14:57)
[2018-02-13] MEDS: Levofloxacin/Dextrose 5%-Water 500 MG in Premix Bag 1 BAG IV SCH (09:50)
[2018-02-13] MEDS ORDERED: Pramipexole 0.5 MG Tab PO PRN (11:09)
[2018-02-13] MEDS: Dextrose 5%-0.9% NaCl 1,000 ML IV SCH (16:02)
[2018-02-13] MEDS: HYDROmorphone 0.5 MG/0.5 ML Syringe IVPUSH PRN (17:58)
[2018-02-13] MEDS: Pramipexole 0.5 MG Tab PO SCH (20:42)
[2018-02-14] MEDS: metroNIDAZOLE/Normal Saline 500 MG in Premix Bag 1 BAG IV SCH ×3 (00:38→18:12)
[2018-02-14] MEDS: Metoclopramide 10 MG/2 ML SDV IVPUSH SCH ×2 (05:18→11:58)
--- NOTE | 2018-02-14 06:45 | PCM.PN ---
- General Info Date of Service: 02/14/18 Admission Dx/Problem (Free Text): Admission Diagnosis/Problem Admission Diagnosis/Problem Small bowel obstruction Subjective Update: In to see Basia. She is lying in bed working with OT. She reports her abdominal pain has resolved. Her NG tube output has cleared up and decreased. She has been passing gas. Will discontinue NG tube and increase diet as tolerated. May advance as tolerated. Continue IV antibiotics for now. She looks good. She has been up ambulating. No patient or nursing concerns. Labs are stable. She has had a BM and denies any pain after eating. Functional Status: Reports: Pain Controlled, Tolerating Diet, Ambulating, Urinating. Denies: New Symptoms - Review of Systems General: Reports: Appetite. Denies: Fever, Weakness, Fatigue, Malaise, Chills HEENT: Reports: No Symptoms. Denies: Sore Throat Pulmonary: Reports: No Symptoms. Denies: Shortness of Breath, Cough, Sputum, Wheezing Cardiovascular: Reports: No Symptoms. Denies: Chest Pain, Palpitations, Dyspnea on Exertion Gastrointestinal: Reports: No Symptoms. Denies: Abdominal Pain, Constipation, Diarrhea, Nausea, Vomiting Genitourinary: Reports: No Symptoms. Denies: Dysuria, Frequency, Burning, Pain , Urgency Musculoskeletal: Reports: No Symptoms Skin: Reports: No Symptoms Neurological: Reports: No Symptoms, Pre-Existing Deficit, Difficulty Walking ( chronic), Gait Disturbance (chronic ). Denies: Confusion, Dizziness, Headache, Numbness, Trouble Speaking, Weakness Psychiatric: Reports: No Symptoms - Patient Data Vitals - Most Recent: Last Vital Signs Temp 97.9 F 02/14/18 05:04 Pulse 76 02/14/18 05:04 Resp 14 02/14/18 05:04 BP 92/55 L 02/14/18 05:04 Pulse Ox 94 L 02/14/18 05:04 Weight - Most Recent: 118 lb 3.2 oz I&O - Last 24 Hours: Intake & Output 02/13/18 02/13/18 02/14/18 14:59 22:59 06:59 Intake Total 750 650 Output Total 350 250 300 Balance -350 500 350 Lab Results Last 24 Hours: Laboratory Results - last 24 hr 02/13/18 02/13/18 02/13/18 Range/Units 06:35 06:35 12:48 WBC 14.10 H (3.98-10.04) K/mm3 RBC 4.03 (3.98-5.22) M/mm3 Hgb 12.5 (11.2-15.7) gm/L Hct 38.3 (34.1-44.9) % MCV 95.0 H (79.4-94.8) fl MCH 31.0 (25.6-32.2) pg MCHC 32.6 (32.2-35.5) g/dl RDW Std Deviation 43.4 (36.4-46.3) fL Plt Count 193 (182-369) K/mm3 MPV 11.7 (9.4-12.3) fl Neut % (Auto) 59.5 (34.0-71.1) % Lymph % (Auto) 32.5 (19.3-51.7) % [place] % (Auto) 7.3 (4.7-12.5) % Eos % (Auto) 0.4 L (0.7-5.8) Baso % (Auto) 0.1 (0.1-1.2) % Neut # (Auto) 8.39 H (1.56-6.13) K/mm3 Lymph # (Auto) 4.58 H (1.18-3.74) K/mm3 [place] # (Auto) 1.03 H (0.24-0.36) K/mm3 Eos # (Auto) 0.06 (0.04-0.36) K/mm3 Baso # (Auto) 0.01 (0.01-0.08) K/mm3 Sodium 144 (136-145) mEq/L Potassium 3.2 L (3.5-5.1) mEq/L Chloride 109 H (98-107) mEq/L Carbon Dioxide 27 (21-32) mEq/L Anion Gap 11.2 (5-15) BUN 29 H (7-18) mg/dL Creatinine 0.6 (0.55-1.02) mg/dL Est Cr Clr Drug Dosing 70.98 mL/min Estimated GFR (MDRD) > 60 (>60) mL/min BUN/Creatinine Ratio 48.3 H (14-18) Glucose 121 H (80-115) mg/dL POC Glucose 104 (80-115) mg/dL Calcium 8.5 (8.5-10.1) mg/dL Magnesium 2.0 (1.8-2.4) mg/dl C-Reactive Protein 8.0 H* (<1.0) mg/dL 02/13/18 02/14/18 02/14/18 Range/Units 19:50 01:01 05:07 WBC (3.98-10.04) K/mm3 RBC (3.98-5.22) M/mm3 Hgb (11.2-15.7) gm/L Hct (34.1-44.9) % MCV (79.4-94.8) fl MCH (25.6-32.2) pg MCHC (32.2-35.5) g/dl RDW Std Deviation (36.4-46.3) fL Plt Count (182-369) K/mm3 MPV (9.4-12.3) fl Neut % (Auto) (34.0-71.1) % Lymph % (Auto) (19.3-51.7) % [place] % (Auto) (4.7-12.5) % Eos % (Auto) (0.7-5.8) Baso % (Auto) (0.1-1.2) % Neut # (Auto) (1.56-6.13) K/mm3 Lymph # (Auto) (1.18-3.74) K/mm3 [place] # (Auto) (0.24-0.36) K/mm3 Eos # (Auto) (0.04-0.36) K/mm3 Baso # (Auto) (0.01-0.08) K/mm3 Sodium (136-145) mEq/L Potassium (3.5-5.1) mEq/L Chloride (98-107) mEq/L Carbon Dioxide (21-32) mEq/L Anion Gap (5-15) BUN (7-18) mg/dL Creatinine (0.55-1.02) mg/dL Est Cr Clr Drug Dosing mL/min Estimated GFR (MDRD) (>60) mL/min BUN/Creatinine Ratio (14-18) Glucose (80-115) mg/dL POC Glucose 102 95 96 (80-115) mg/dL Calcium (8.5-10.1) mg/dL Magnesium (1.8-2.4) mg/dl C-Reactive Protein (<1.0) mg/dL 02/14/18 02/14/18 Range/Units 05:50 05:50 WBC 10.13 H (3.98-10.04) K/mm3 RBC 3.72 L (3.98-5.22) M/mm3 Hgb 11.4 (11.2-15.7) gm/L Hct 35.5 (34.1-44.9) % MCV 95.4 H (79.4-94.8) fl MCH 30.6 (25.6-32.2) pg MCHC 32.1 L (32.2-35.5) g/dl RDW Std Deviation 42.9 (36.4-46.3) fL Plt Count 171 L (182-369) K/mm3 MPV 11.3 (9.4-12.3) fl Neut % (Auto) 45.3 (34.0-71.1) % Lymph % (Auto) 43.9 (19.3-51.7) % [place] % (Auto) 7.4 (4.7-12.5) % Eos % (Auto) 3.1 (0.7-5.8) Baso % (Auto) 0.2 (0.1-1.2) % Neut # (Auto) 4.59 (1.56-6.13) K/mm3 Lymph # (Auto) 4.45 H (1.18-3.74) K/mm3 [place] # (Auto) 0.75 H (0.24-0.36) K/mm3 Eos # (Auto) 0.31 (0.04-0.36) K/mm3 Baso # (Auto) 0.02 (0.01-0.08) K/mm3 Sodium 143 (136-145) mEq/L Potassium 3.7 (3.5-5.1) mEq/L Chloride 109 H (98-107) mEq/L Carbon Dioxide 26 (21-32) mEq/L Anion Gap 11.7 (5-15) BUN 21 H (7-18) mg/dL Creatinine 0.6 (0.55-1.02) mg/dL Est Cr Clr Drug Dosing 70.98 mL/min Estimated GFR (MDRD) > 60 (>60) mL/min BUN/Creatinine Ratio 35.0 H (14-18) Glucose 108 (80-115) mg/dL POC Glucose (80-115) mg/dL Calcium 8.1 L (8.5-10.1) mg/dL Magnesium 1.9 (1.8-2.4) mg/dl C-Reactive Protein 8.5 H* (<1.0) mg/dL Med Orders - Current: Current Medications Acetaminophen (Tylenol) 650 mg RECTAL Q4H PRN PRN Reason: Pain (mild 1-3) Acetaminophen (Tylenol) 650 mg PO Q4H PRN PRN Reason: Pain Last Admin: 02/13/18 14:57 Dose: 650 mg Benzocaine (Hurricaine 20% [place]) 0 ml MUCMEM Q4H PRN PRN Reason: Throat pain from NG tube Last Admin: 02/12/18 10:19 Dose: 1 spray Carbamazepine (Tegretol Tab) 200 mg PO BID [facility] Last Admin: 02/13/18 20:42 Dose: 200 mg Enoxaparin Sodium (Lovenox) 40 mg SUBCUT DAILY [facility] Last Admin: 02/13/18 08:33 Dose: 40 mg Hydralazine HCl (Apresoline) 10 mg IVPUSH Q6H PRN PRN Reason: Hypertension Hydromorphone HCl (Dilaudid) 0.5 mg IVPUSH Q2H PRN PRN Reason: Pain (severe 7-10) Last Admin: 02/13/18 17:58 Dose: 0.5 mg Levofloxacin/Dextrose 500 mg/ (Premix) 100 mls @ 100 mls/hr IV Q24H [facility] Last Admin: 02/13/18 09:50 Dose: 100 mls/hr Metronidazole 500 mg/ Premix 100 mls @ 100 mls/hr IV Q8H [facility] Last Admin: 02/14/18 00:38 Dose: 100 mls/hr Dextrose/Sodium Chloride (Dextrose 5%-Normal Saline) 1,000 mls @ 50 mls/hr IV ASDIRECTED [facility] Last Admin: 02/13/18 16:02 Dose: 50 mls/hr Lorazepam (Ativan) 2 mg IVPUSH Q4H PRN PRN Reason: Seizures Lorazepam (Ativan) 0.5 mg PO Q6H PRN PRN Reason: Anxiety Magnesium Sulfate (Pharmacy To Dose - Magnesium Replacement) 0 dose .XX ASDIRECTED PRN PRN Reason: RX TO DOSE MAG Metoclopramide HCl (Reglan) 5 mg IVPUSH Q6H [facility] Last Admin: 02/14/18 05:18 Dose: 5 mg Metoprolol Succinate (Toprol Xl) 25 mg PO DAILY [facility] Last Admin: 02/13/18 08:28 Dose: 25 mg Metoprolol Tartrate (Lopressor) 5 mg IVPUSH Q4H PRN PRN Reason: Tachycardia Pantoprazole Sodium (Protonix Iv) 40 mg IV Q12HR [facility] Last Admin: 02/13/18 20:41 Dose: 40 mg Potassium Chloride (Pharmacy To Dose - Potassium Replacement) 0 dose .XX ASDIRECTED PRN PRN Reason: RX TO DOSE K Pramipexole Dihydrochloride (Mirapex) 0.5 mg PO BEDTIME [facility] Last Admin: 02/13/18 20:42 Dose: 0.5 mg Pramipexole Dihydrochloride (Mirapex) 0.5 mg PO BEDTIME PRN PRN Reason: RESTLESS LEG SYNDROME Sertraline HCl (Zoloft) 100 mg PO DAILY [facility] Last Admin: 02/13/18 08:32 Dose: 100 mg Discontinued Medications Carbamazepine (Tegretol Tab) 200 mg PO ONETIME ONE Stop: 02/12/18 12:21 Last Admin: 02/12/18 12:25 Dose: 200 mg Hydromorphone HCl (Dilaudid) 0.5 mg IVPUSH ONETIME ONE Stop: 02/12/18 06:09 Last Admin: 02/12/18 06:13 Dose: 0.5 mg Sodium Chloride (Normal Saline) 1,000 mls @ 150 mls/hr IV ASDIRECTED [facility] Last Admin: 02/12/18 10:21 Dose: 150 mls/hr Iopamidol (Isovue-300 (61%)) 125 ml IVPUSH ONETIME ONE Stop: 02/12/18 04:30 Last Admin: 02/12/18 04:59 Dose: 125 ml Lidocaine HCl (Xylocaine 2% Jelly) 10 ml MUCMEM ONETIME ONE Stop: 02/12/18 05:16 Last Admin: 02/12/18 05:32 Dose: Not Given Lidocaine HCl (Xylocaine 2% Viscous) 15 ml PO ONETIME ONE Stop: 02/12/18 05:32 Last Admin: 02/12/18 05:32 Dose: 15 ml Lorazepam (Ativan) 1 mg IVPUSH Q4H PRN; Protocol PRN Reason: Anxiety Last Admin: 02/12/18 22:29 Dose: 1 mg Ondansetron HCl (Zofran) 4 mg IVPUSH ONETIME ONE Stop: 02/12/18 05:33 Last Admin: 02/12/18 05:41 Dose: 4 mg Ondansetron HCl (Zofran) 4 mg IV Q6H PRN PRN Reason: Nausea/Vomiting Last Admin: 02/12/18 10:05 Dose: 4 mg Potassium Chloride (Klor-Con M20) 40 meq PO BID IZZY Stop: 02/13/18 21:01 Last Admin: 02/13/18 20:42 Dose: 40 meq Pramipexole Dihydrochloride (Mirapex) 1 mg PO Q24H IZZY Last Admin: 02/12/18 16:00 Dose: Not Given Pramipexole Dihydrochloride (Mirapex) 1 mg PO ONETIME ONE Stop: 02/12/18 12:21 Last Admin: 02/12/18 12:25 Dose: 1 mg - Exam Quality Assessment: DVT Prophylaxis General: Alert, Oriented, Cooperative, No Acute Distress HEENT: Pupils Equal, Pupils Reactive, EOMI, Mucous Membr. Moist/[place] Neck: Supple, Trachea Midline, No JVD Lungs: Clear to Auscultation, Normal Respiratory Effort Cardiovascular: Regular Rate, Regular Rhythm GI/Abdominal Exam: Normal Bowel Sounds, Soft, Non-Tender, No Organomegaly, No Distention (Female) Exam: Deferred Back Exam: Normal Inspection, Full Range of Motion Extremities: Normal Inspection, Normal Range of Motion, Non-Tender, No Pedal Edema, Normal Capillary Refill Peripheral Pulses: 2+: Radial (L), Radial (R), Dorsalis Pedis (L), Dorsalis Pedis (R) Skin: Warm, Dry, Intact Neurological: No New Focal Deficit Psy/Mental Status: Alert, Normal Affect, Normal Mood - Problem List & Annotations (1) Partial small bowel obstruction SNOMED Code(s): 404835795 Code(s): K56.600 - PARTIAL INTESTINAL OBSTRUCTION, UNSPECIFIED TO CAUSE Status: Acute Priority: High Current Visit: Yes (2) Enteritis SNOMED Code(s): 60321299 Code(s): K52.9 - NONINFECTIVE GASTROENTERITIS AND COLITIS, UNSPECIFIED Status: Acute Priority: High Current Visit: Yes (3) History of CVA with residual deficit SNOMED Code(s): 175310701 Code(s): I69.30 - UNSPECIFIED SEQUELAE OF CEREBRAL INFARCTION Status: Chronic Priority: Medium Current Visit: Yes (4) History of brain cancer SNOMED Code(s): 331232759, 103797294 Code(s): Z85.841 - PERSONAL HISTORY OF MALIGNANT NEOPLASM OF BRAIN Status: Chronic Priority: Medium Current Visit: No (5) History of uterine cancer SNOMED Code(s): 166138196 Code(s): Z85.42 - PERSONAL HISTORY OF MALIGNANT NEOPLASM OF OTH PRT UTERUS Status: Chronic Priority: Low Current Visit: No (6) Anxiety SNOMED Code(s): 44635172 Code(s): F41.9 - ANXIETY DISORDER, UNSPECIFIED Status: Chronic Priority: Medium Current Visit: No (7) History of seizures SNOMED Code(s): 849941368 Code(s): Z87.898 - PERSONAL HISTORY OF OTHER SPECIFIED CONDITIONS Status: Chronic Priority: Medium Current Visit: No (8) Hypokalemia SNOMED Code(s): 15635160 Code(s): E87.6 - HYPOKALEMIA Status: Acute Current Visit: Yes - Problem List Review Problem List Initiated/Reviewed/Updated: Yes - My Orders Last 24 Hours: My Active Orders 02/13/18 07:36 LORazepam [Ativan] 0.5 mg PO Q6H PRN 02/13/18 08:52 Acetaminophen [Tylenol] 650 mg PO Q4H PRN 02/13/18 09:00 Metoprolol Succinate [Toprol XL] 25 mg PO DAILY Sertraline [Zoloft] 100 mg PO DAILY 02/13/18 11:09 Pramipexole [Mirapex] 0.5 mg PO BEDTIME PRN 02/13/18 21:00 Pramipexole [Mirapex] 0.5 mg PO BEDTIME 02/15/18 05:11 BASIC METABOLIC PANEL,BMP [CHEM] AM CBC WITH AUTO DIFF [HEME] AM CRP [C-REACTIVE PROTEIN] [CHEM] AM MAGNESIUM [CHEM] AM 02/16/18 05:11 BASIC METABOLIC PANEL,BMP [CHEM] AM CBC WITH AUTO DIFF [HEME] AM CRP [C-REACTIVE PROTEIN] [CHEM] AM MAGNESIUM [CHEM] AM - Plan Plan:: I/P: Acute: Partial small bowel obstruction -Reports symptoms started on afternoon of 02/11/18 -Generalized abdominal pain, nausea, emesis, fever -Reports similar symptoms in the past which spontaneously resolved -Reports last BM on 02/11/18 with no recent flatus -CT scan 02/12/18 1. Incomplete distal small bowel obstruction secondary to severe enteritis involving a portion of the ileum as described above. Crohn's disease should be considered in this patient. 2. No evidence for abscess 3. An NG tube would help this patient. -WBC 15.17-->14.1-->10.13 -CRP 0.3-->8-->8.5 -NG tube placed in ED with good return - Discontinue now - good clear output -Antiemetics as ordered -Reglan 5mg Q6Hr scheduled --> stop -NPO--> clear liquids--> soft tomorrow AM, advance as tolerated -Clamp NG tube for home meds -Ambulate QID -Pain medications as ordered -[place]urricane spray for throat irritation from NG tube -D5NS and Q6hr glucose checks while NPO -> discontinue -PT/OT -Levaquin/zosyn for enteritis -Unlikely to develop Crohn's at 67 - explore other options for inflammation -Will hold off surgical consult for now Resolved: Hypokalemia -Potassium 3.2-->3.7 -Pharmacy to monitor and supplement Chronic: Overactive bladder 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
[2018-02-14] MEDS: Sertraline 50 MG Tab PO SCH (08:06)
[2018-02-14] MEDS: Metoprolol Succinate 25 MG Tab.ER PO SCH (08:07)
[2018-02-14] MEDS: carBAMazepine 200 MG Tab PO SCH ×2 (08:13→22:11)
[2018-02-14] MEDS: Levofloxacin/Dextrose 5%-Water 500 MG in Premix Bag 1 BAG IV SCH (08:19)
[2018-02-14] MEDS: Pantoprazole 40 MG Vial IV SCH (08:21)
[2018-02-14] MEDS: Enoxaparin 40 MG/0.4 ML Syringe SUBCUT SCH (08:30)
[2018-02-14] MEDS: Pramipexole 0.5 MG Tab PO SCH (22:11)
[2018-02-15] MEDS ORDERED: metroNIDAZOLE 500 MG Tab PO SCH (06:00)
[2018-02-15 08:30] VITALS: BP 134/65
[2018-02-15] MEDS ORDERED: Levofloxacin 500 MG Tab PO SCH (09:00)
[2018-02-15] MEDS ORDERED: Pantoprazole 40 MG Tab.CR PO SCH (09:00)
[2018-02-15] MEDS: Enoxaparin 40 MG/0.4 ML Syringe SUBCUT SCH (10:00)
[2018-02-15] MEDS ORDERED: Potassium Chloride 20 MEQ Tab.ER PO ONE (10:00)
[2018-02-15] MEDS: Sertraline 50 MG Tab PO SCH (10:00)
[2018-02-15] MEDS: Metoprolol Succinate 25 MG Tab.ER PO SCH (10:00)
[2018-02-15] MEDS: carBAMazepine 200 MG Tab PO SCH (10:21)
--- NOTE | 2018-02-15 11:39 | PCM.DCSUM1 ---
Discharge Summary - Hospital Course Brief History: Basia Toribio is a 67 yo female who presents to our ED early this AM via Ambulance with abdominal pain, nausea, and emesis which began Saturday, 04/2018 at around 1600. She is not a very good historian and is unable to describe the character of her abdominal pain but states it is constant. She reports she has had similar symptoms in the past but has been quite some time since. Denies eating any small or questionable food. No recent antibiotics. No sick contacts. No recent travel. She reports a prior overactive bladder but no new urinary symptoms. Denies constipation or diarrhea. She does report a recent fever. She is a resident [facility] and was given 4 mg Zofran via EMS, which improved her nausea. In the ED temp was 36.6C. Pulse 77. Respirations 16. Blood pressure 127/63. Pulse ox 97%. Labs are obtained: WBC is elevated at 15.17. Hemoglobin normal at 13.2. Hematocrit 39.5. She was normocytic. Platelets are on the low end of good at 197,000. Neutrophils are elevated at 79%. There is no bandemia. Sodium is good at 142. Potassium 3.6. Chloride 104. Carbon dioxide 27. Anion gap is on the high end of normal at 14.6. BUN is elevated at 32. Creatinine 0.8. EGFR greater than 60. Glucose is 163. Calcium 9.6. Bilirubin 0.3. AST is 15, ALT 17, alkaline phosphatase 93. Protein is 6.9. Albumin 4.1. Lipase is good at 177. UA is obtained which is slightly cloudy. One plus ketones and 0-5 WBCs are noted. There is also many bacteria and moderate mucus. She started on normal saline at 150 mils an hour. She is given Dilaudid 0.5 mg for pain and 4 mg IV push of Zofran. CT abdomen and pelvis with oral and IV contrast is obtained and interpreted by virtual radiology as 1. Incomplete distal small bowel obstruction secondary to severe enteritis involving a portion of the ileum as discussed above. Crohn's disease should be considered in this patient. 2. No evidence for abscess. 3. NG tube would help this patient. NG tube was subsequently placed. 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 She is a former smoker who quit in 1978. She wishes to be DNR/DNI. PCP is Antonio Tompkins PA-C. Diagnosis: Stroke: No Modified Chi Scale: No Symptoms at All Modified Calvert Scale Score: 0 - Discharge Data Discharge Date: 02/15/18 Discharge Disposition: Home, Self-Care 01 Condition: Good - Discharge Diagnosis/Problem(s) (1) Enteritis SNOMED Code(s): 15468731 ICD Code: K52.9 - NONINFECTIVE GASTROENTERITIS AND COLITIS, UNSPECIFIED Status: Acute Priority: High (2) Hypokalemia SNOMED Code(s): 76153584 ICD Code: E87.6 - HYPOKALEMIA Status: Acute (3) Partial small bowel obstruction SNOMED Code(s): 837848470 ICD Code: K56.600 - PARTIAL INTESTINAL OBSTRUCTION, UNSPECIFIED TO CAUSE Status: Acute Priority: High - Patient Summary/Data Operative Procedure(s) Performed: None Complications: None Consults: Consultations 02/12/18 06:57 Consult to Case Management/Nut Culler [CONS] Routine OT Evaluation and Treatment [CONS] Routine PT Evaluation and Treatment [CONS] Routine Labs Pending at D/C: None Recommended Follow-up Testing/Procedures: Abdominal CT scan or GI eval for inflammatory disease Planned Operative Procedure(s) after DC: None Hospital Course: The patient was primarily admitted for treatment of small bowel obstruction 2/2 enteritis. This abnormal finding was confirmed on abdominal/pelvis CT scan. Patient was mainly treated conservatively and she slowly respond to the regimen provided. Her hospital course was uncomplicated and the rest of her chronic medical illness remained stable during her short stay in the hospital. Patient was stable upon discharge. She was sent home with additional course of oral antibiotics to take along with stool supplement and PRN medications of constipation. She was advised to follow discharge instructions. She was further advised to come back or seek immediate care should her symptoms persist or get worse. The patient expressed understanding and in agreement with the plans as discussed above. All questions were answered. - Patient Instructions Diet: Usual Diet as Tolerated Activity: As Tolerated Driving: Do Not Drive Showering/Bathing: May Shower Notify Provider of: Fever, Increased Pain, Swelling and Redness, Nausea and/or Vomiting Other/Special Instructions: - Please take all new medications as directed. - Resume all home medications. - Continue routine home activities as tolerated. - Recommend follow up abdominal CT scan or referral to GI for further evaluation of enteritis. - Call or follow up with your PCP for any questions or concerns after discharge. - Follow up with your PCP in 1 week with repeat labs. - Come back or seek immediate care should your symptoms persist or get worse - Discharge Plan *PRESCRIPTION DRUG MONITORING PROGRAM REVIEWED*: Not Applicable *COPY OF PRESCRIPTION DRUG MONITORING REPORT IN PATIENT [facility]: Not Applicable Prescriptions/Med Rec: Docusate Sodium/Sennosides [Senokot-S] 1 each PO BEDTIME #30 tablet levoFLOXacin [Levaquin] 500 mg PO Q24H #7 tablet metroNIDAZOLE [Flagyl] 500 mg PO TID@0700,1400,2100 #11 tablet Polyethylene Glycol 3350 [MiraLAX] 17 gm PO BID PRN #6 packet PRN Reason: Constipation Saccharomyces Boulardii [Florastor] 250 mg PO TID@0700,1400,2100 #21 cap Home Medications: Home Meds Alendronate [Fosamax] 70 mg PO WEEKLY 10/28/13 [History] Calcium 1 tab PO DAILY 10/28/13 [History] Iron 325 mg PO DAILY 10/28/13 [History] Lisinopril 2.5 mg PO BEDTIME 10/28/13 [History] Metoprolol Succinate [Toprol XL] 25 mg PO DAILY 10/28/13 [History] Multivitamin [Multivitamins] 1 cap PO DAILY 10/28/13 [History] Pramipexole [Mirapex] 1 mg PO BEDTIME 10/28/13 [History] Sertraline [Zoloft] 100 mg PO DAILY 10/28/13 [History] carBAMazepine [Tegretol] 200 mg PO BID 10/28/13 [History] Aspirin 81 mg PO DAILY 12/05/14 [History] Cholecalciferol (Vitamin D3) [Vitamin D3] 1,000 unit PO DAILY 06/23/15 [History] Cranberry Extract [Cranberry] 2 tab PO DAILY 06/23/15 [History] Chlorpheniramine Maleate [Chlorhist] 4 mg PO Q4HR PRN 02/12/18 [History] Cyanocobalamin (Vitamin B-12) [Vitamin B-12] 1,000 mcg PO DAILY 02/12/18 [ History] Meclizine [Antivert] 12.5 mg PO TID PRN 02/12/18 [History] Docusate Sodium/Sennosides [Senokot-S] 1 each PO BEDTIME #30 tablet 02/15/18 [Rx ] Polyethylene Glycol 3350 [MiraLAX] 17 gm PO BID PRN #6 packet 02/15/18 [Rx] Saccharomyces Boulardii [Florastor] 250 mg PO TID@0700,1400,2100 #21 cap [Rx] levoFLOXacin [Levaquin] 500 mg PO Q24H #7 tablet 02/15/18 [Rx] metroNIDAZOLE [Flagyl] 500 mg PO TID@0700,1400,2100 #11 tablet 02/15/18 [Rx] Patient Handouts: Small Bowel Obstruction, [id number], Hypokalemia Referrals: Antonio Tompkins PA [Physician Glue Mixer] - (Please call for a follow up appointment in 5-7 days [phone] post hospitalization) - Discharge Summary/Plan Comment DC Time >30 min.: Yes (45 mins) Discharge Summary/Plan Comment: Discharge to Home - General Info Date of Service: 02/15/18 Admission Dx/Problem (Free Text: Admission Diagnosis/Problem Admission Diagnosis/Problem Small bowel obstruction Subjective Update: Follow Up Functional Status: Reports: Pain Controlled, Tolerating Diet, Ambulating, Urinating. Denies: New Symptoms - Review of Systems General: Denies: Fever, Weakness, Fatigue, Chills Pulmonary: Denies: Shortness of Breath Cardiovascular: Denies: Chest Pain, Dyspnea on Exertion, Lightheadedness Gastrointestinal: Reports: Flatus. Denies: Abdominal Pain, Decreased Appetite, Diarrhea, Difficulty Swallowing, Nausea, Vomiting Genitourinary: Reports: No Symptoms Musculoskeletal: Reports: No Symptoms Skin: Reports: No Symptoms Neurological: Denies: Confusion, Difficulty Walking, Weakness, Gait Disturbance Psychiatric: Denies: Depression, Anxiety, Agitation, Hallucinations Systems Review Comment: No overnight or acute issues. She rested well last night. She is doing relatively and has no GI issues after breakfast. She is afebrile with much improved WBC level. - Patient Data Vitals - Most Recent: Last Vital Signs Temp 36.7 C 09/15/18 07:24 Pulse 64 02/15/18 10:00 Resp 14 02/15/18 07:24 BP 134/65 02/15/18 10:00 Pulse Ox 96 02/15/18 07:24 Weight - Most Recent: 53.479 kg I&O - Last 24 hours: Intake & Output 02/14/18 02/15/18 02/15/18 22:59 06:59 14:59 Intake Total 1350 360 Output Total 400 675 Balance 950 -315 Lab Results - Last 24 hrs: Laboratory Results - last 24 hr 02/15/18 02/15/18 Range/Units 05:30 05:30 WBC 10.48 H (3.98-10.04) K/mm3 RBC 3.46 L (3.98-5.22) M/mm3 Hgb 10.7 L (11.2-15.7) gm/L Hct 32.7 L (34.1-44.9) % MCV 94.5 (79.4-94.8) fl MCH 30.9 (25.6-32.2) pg MCHC 32.7 (32.2-35.5) g/dl RDW Std Deviation 42.0 (36.4-46.3) fL Plt Count 179 L (182-369) K/mm3 MPV 11.4 (9.4-12.3) fl Neut % (Auto) 40.9 (34.0-71.1) % Lymph % (Auto) 48.9 (19.3-51.7) % [place] % (Auto) 6.6 (4.7-12.5) % Eos % (Auto) 3.3 (0.7-5.8) Baso % (Auto) 0.2 (0.1-1.2) % Neut # (Auto) 4.29 (1.56-6.13) K/mm3 Lymph # (Auto) 5.12 H (1.18-3.74) K/mm3 [place] # (Auto) 0.69 H (0.24-0.36) K/mm3 Eos # (Auto) 0.35 (0.04-0.36) K/mm3 Baso # (Auto) 0.02 (0.01-0.08) K/mm3 Manual Slide Review Normal smear Sodium 141 (136-145) mEq/L Potassium 3.2 L (3.5-5.1) mEq/L Chloride 107 (98-107) mEq/L Carbon Dioxide 26 (21-32) mEq/L Anion Gap 11.2 (5-15) BUN 16 (7-18) mg/dL Creatinine 0.5 L (0.55-1.02) mg/dL Est Cr Clr Drug Dosing 85.17 mL/min Estimated GFR (MDRD) > 60 (>60) mL/min BUN/Creatinine Ratio 32.0 H (14-18) Glucose 102 (80-115) mg/dL Calcium 8.4 L (8.5-10.1) mg/dL Magnesium 1.8 (1.8-2.4) mg/dl C-Reactive Protein 4.4 H* (<1.0) mg/dL Med Orders - Current: Current Medications Acetaminophen (Tylenol) 650 mg PO Q4H PRN PRN Reason: Pain Last Admin: 02/13/18 14:57 Dose: 650 mg Benzocaine (Hurricaine 20% Elmo) 0 ml MUCMEM Q4H PRN PRN Reason: Throat pain from NG tube Last Admin: 02/12/18 10:19 Dose: 1 spray Carbamazepine (Tegretol Tab) 200 mg PO BID [facility] Last Admin: 02/15/18 10:21 Dose: 200 mg Enoxaparin Sodium (Lovenox) 40 mg SUBCUT DAILY [facility] Last Admin: 02/15/18 10:00 Dose: 40 mg Hydralazine HCl (Apresoline) 10 mg IVPUSH Q6H PRN PRN Reason: Hypertension Hydromorphone HCl (Dilaudid) 0.5 mg IVPUSH Q2H PRN PRN Reason: Pain (severe 7-10) Last Admin: 02/13/18 17:58 Dose: 0.5 mg Levofloxacin (Levaquin) 500 mg PO Q24H [facility] Last Admin: 02/15/18 10:00 Dose: 500 mg Lorazepam (Ativan) 2 mg IVPUSH Q4H PRN PRN Reason: Seizures Lorazepam (Ativan) 0.5 mg PO Q6H PRN PRN Reason: Anxiety Magnesium Sulfate (Pharmacy To Dose - Magnesium Replacement) 0 dose .XX ASDIRECTED PRN PRN Reason: RX TO DOSE MAG Metoprolol Succinate (Toprol Xl) 25 mg PO DAILY [facility] Last Admin: 02/15/18 10:00 Dose: 25 mg Metoprolol Tartrate (Lopressor) 5 mg IVPUSH Q4H PRN PRN Reason: Tachycardia Metronidazole (Flagyl) 500 mg PO Q8H [facility] Last Admin: 02/15/18 05:21 Dose: 500 mg Pantoprazole Sodium (Protonix) 40 mg PO DAILY [facility] Last Admin: 02/15/18 10:00 Dose: 40 mg Potassium Chloride (Pharmacy To Dose - Potassium Replacement) 0 dose .XX ASDIRECTED PRN PRN Reason: RX TO DOSE K Pramipexole Dihydrochloride (Mirapex) 0.5 mg PO BEDTIME [facility] Last Admin: 02/14/18 22:11 Dose: 0.5 mg Pramipexole Dihydrochloride (Mirapex) 0.5 mg PO BEDTIME PRN PRN Reason: RESTLESS LEG SYNDROME Sertraline HCl (Zoloft) 100 mg PO DAILY [facility] Last Admin: 02/15/18 10:00 Dose: 100 mg Discontinued Medications Acetaminophen (Tylenol) 650 mg RECTAL Q4H PRN PRN Reason: Pain (mild 1-3) Carbamazepine (Tegretol Tab) 200 mg PO ONETIME ONE Stop: 02/12/18 12:21 Last Admin: 02/12/18 12:25 Dose: 200 mg Hydromorphone HCl (Dilaudid) 0.5 mg IVPUSH ONETIME ONE Stop: 02/12/18 06:09 Last Admin: 02/12/18 06:13 Dose: 0.5 mg Sodium Chloride (Normal Saline) 1,000 mls @ 150 mls/hr IV ASDIRECTED [facility] Last Admin: 02/12/18 10:21 Dose: 150 mls/hr Levofloxacin/Dextrose 500 mg/ (Premix) 100 mls @ 100 mls/hr IV Q24H [facility] Last Admin: 02/14/18 08:19 Dose: 100 mls/hr Metronidazole 500 mg/ Premix 100 mls @ 100 mls/hr IV Q8H [facility] Last Admin: 02/14/18 18:12 Dose: 100 mls/hr Dextrose/Sodium Chloride (Dextrose 5%-Normal Saline) 1,000 mls @ 50 mls/hr IV ASDIRECTED [facility] Last Admin: 02/13/18 16:02 Dose: 50 mls/hr Iopamidol (Isovue-300 (61%)) 125 ml IVPUSH ONETIME ONE Stop: 02/12/18 04:30 Last Admin: 02/12/18 04:59 Dose: 125 ml Lidocaine HCl (Xylocaine 2% Jelly) 10 ml MUCMEM ONETIME ONE Stop: 02/12/18 05:16 Last Admin: 02/12/18 05:32 Dose: Not Given Lidocaine HCl (Xylocaine 2% Viscous) 15 ml PO ONETIME ONE Stop: 02/12/18 05:32 Last Admin: 02/12/18 05:32 Dose: 15 ml Lorazepam (Ativan) 1 mg IVPUSH Q4H PRN; Protocol PRN Reason: Anxiety Last Admin: 02/12/18 22:29 Dose: 1 mg Metoclopramide HCl (Reglan) 5 mg IVPUSH Q6H [facility] Last Admin: 02/14/18 11:58 Dose: 5 mg Ondansetron HCl (Zofran) 4 mg IVPUSH ONETIME ONE Stop: 02/12/18 05:33 Last Admin: 02/12/18 05:41 Dose: 4 mg Ondansetron HCl (Zofran) 4 mg IV Q6H PRN PRN Reason: Nausea/Vomiting Last Admin: 02/12/18 10:05 Dose: 4 mg Pantoprazole Sodium (Protonix Iv) 40 mg IV Q12HR [facility] Last Admin: 02/14/18 08:21 Dose: 40 mg Potassium Chloride (Klor-Con M20) 40 meq PO BID [facility] Stop: 02/13/18 21:01 Last Admin: 02/13/18 20:42 Dose: 40 meq Potassium Chloride (Klor-Con M20) 40 meq PO ONETIME ONE Stop: 02/15/18 10:01 Last Admin: 02/15/18 10:22 Dose: 40 meq Pramipexole Dihydrochloride (Mirapex) 1 mg PO Q24H [facility] Last Admin: 02/12/18 16:00 Dose: Not Given Pramipexole Dihydrochloride (Mirapex) 1 mg PO ONETIME ONE Stop: 02/12/18 12:21 Last Admin: 02/12/18 12:25 Dose: 1 mg - Exam General: Reports: Alert, Oriented, Cooperative, No Acute Distress HEENT: Reports: Pupils Equal, Pupils Reactive, EOMI, Mucous Membr. Moist/[place] Neck: Reports: Supple, Trachea Midline Lungs: Reports: Clear to Auscultation, Normal Respiratory Effort Cardiovascular: Reports: Regular Rate, Regular Rhythm GI/Abdominal Exam: Normal Bowel Sounds, Soft, Non-Tender, No Organomegaly, No Distention, No Abnormal Bruit (Female) Exam: Deferred Rectal (Female) Exam: Deferred Back Exam: Reports: Normal Inspection, Decreased Range of Motion Extremities: Normal Inspection, Normal Range of Motion, Non-Tender, No Pedal Edema, Normal Capillary Refill Skin: Reports: Warm, Dry, Intact Neurological: Reports: No New Focal Deficit Psy/Mental Status: Reports: Alert, Normal Affect, Normal Mood
== END 2018-02-15 12:47 | disposition home or self-care (01) | DRG 392 ==
LOC: JD.ED 02:42 → JD.MS 06:15
PROVIDERS: ADMIT Internal Medicine; ATTEND Internal Medicine
PROC: 0D9670Z Drainage of Stomach with Drainage Device, Via Natural or Artificial Opening (ICD-10-PCS; principal; 2018-02-12)
DX: K56.600 Partial intestinal obstruction, unspecified as to cause (principal); K52.9 Noninfective gastroenteritis and colitis, unspecified; I69.351 Hemiplegia and hemiparesis following cerebral infarction affecting right dominant side; R56.9 Unspecified convulsions; F41.9 Anxiety disorder, unspecified; F32.9 Major depressive disorder, single episode, unspecified; M81.0 Age-related osteoporosis without current pathological fracture; I69.392 Facial weakness following cerebral infarction; E87.6 Hypokalemia; N32.81 Overactive bladder; H54.7 Unspecified visual loss; Z85.841 Personal history of malignant neoplasm of brain; Z85.42 Personal history of malignant neoplasm of other parts of uterus; Z90.710 Acquired absence of both cervix and uterus; Z90.49 Acquired absence of other specified parts of digestive tract; Z87.442 Personal history of urinary calculi; R11.2 Nausea with vomiting, unspecified; R10.84 Generalized abdominal pain; Z79.899 Other long term (current) drug therapy; Z79.82 Long term (current) use of aspirin; Z98.1 Arthrodesis status; Z87.891 Personal history of nicotine dependence; Z66 Do not resuscitate
CPT/HCPCS: 36415; 74177; 80053; 81001; 83690; 85007; 85027; 86140; 96361; 96374; 96375; 99285; A9270; J1170; J2405; J7040; Q9967; 80048; 82962; 83735; 85025; 87641; 97110-GO; 97116-GP; 97162-GP; 97166-GO; 97530-GO; C9113; J1650; J1956; J2060; J2765; J3490; J7042

== ENCOUNTER 2018-06-24 09:07 | Day surgery (SDC) | payer MEDICARE, BC ==
[~2018-06-24 09:07] MED LIST: Lactated Ringers 1,000 ML IV SCH; Lidocaine 1%/Sod Bicarbonate in NS 8.4% 1 ML Syringe IDERM PRN; Sodium Chloride 0.9% 10 ML Syringe FLUSH PRN
[2018-06-24] MEDS ORDERED: Propofol 200 MG/20 ML SDV ONE (09:20)
[2018-06-24] MEDS ORDERED: Lidocaine 1% 0 ML ONE (09:21)
[2018-06-24] MEDS ORDERED: fentaNYL 100 MCG/2 ML SDV ONE (09:21)
[2018-06-24 09:49] VITALS: BP 135/69
--- NOTE | 2018-06-24 11:15 | PCM.SN ---
- Free Text/Narrative Note: The patient is here to undergo screening colonoscopy. However, yesterday, she fell from standing position. She had questionable LOC, and has poor recall of events. I recommended going to the ER to rule out head injury. Also, I recommended against undergoing anesthesia for the colonoscopy given this head injury. Patient refused going to the ER, and also demanded that the colonoscopy be done today. She refused to do the prep again in the future. I explained that undergoing evaluation in the ER and avoiding anesthesia at this time would be in the best interest of her health. She decided to leave the hospital. Deion Victoria M.D., F.A.C.S. General Surgery Pager: [phone]
== END 2018-06-24 11:21 | disposition left against medical advice (07) ==
LOC: JD.SDS 09:07
PROVIDERS: ATTEND Student in an Organized Health Care Education/Training Program
DX: Z12.11 Encounter for screening for malignant neoplasm of colon (principal); Z53.8 Procedure and treatment not carried out for other reasons
CPT/HCPCS: J2704; J7120; J2001; J3010